=== PATIENT | female | born 1980 | race Caucasian/White ===

== ENCOUNTER 2020-04-30 22:04 | Emergency (ER) | payer OTHER ==
[~2020-04-30 22:04] MED LIST: BACTRIM DS TAB1 EACH PO; KEFLEX CAP 500500 MG PO; PERCOCET 10-321 EACH PO; VIBRAMYCIN100 MG PO
[2020-05-01 00:54] LABS: HEMOGLOBIN 11.8 gm/dl (12.3-15.3); RED BLOOD COUNT 4.41 M/UL (4.00-5.10)
[2020-05-01 01:04] LABS: BUN/CREATININE RATIO 18 (0-10)
== END 2020-05-01 03:20 | disposition home or self-care (01) ==
LOC: ER1 22:04
DX: M79.89 Other specified soft tissue disorders (principal); Z90.89 Acquired absence of other organs
CPT/HCPCS: 71045; 73590; 80053; 82550; 82553; 83874; 83880; 84484; 85025; 85379; 85652; 99283

== ENCOUNTER 2020-06-17 01:23 | Emergency (ER) | payer OTHER ==
[2020-06-17 02:50] LABS: HEMOGLOBIN 11.2 gm/dl (12.3-15.3); RED BLOOD COUNT 4.25 M/UL (4.00-5.10); WHITE BLOOD COUNT 5.3 K/UL (4.5-11.0)
[2020-06-17 03:07] LABS: BUN/CREATININE RATIO 18 (0-10)
[2020-06-17] MEDS ORDERED: AUGMENTIN 875-1 EACH PO (04:25)
== END 2020-06-17 04:37 | disposition home or self-care (01) ==
LOC: ER1 01:23
PROVIDERS: Physician Assistant
DX: J02.0 Streptococcal pharyngitis (principal); R79.1 Abnormal coagulation profile; Z86.718 Personal history of other venous thrombosis and embolism; Z90.49 Acquired absence of other specified parts of digestive tract; Z88.8 Allergy status to other drugs, medicaments and biological substances
CPT/HCPCS: 70491; 80053; 84439; 84443; 85025; 85379; 86403; 87081; 87880; 99284; J1650; Q9967

== ENCOUNTER 2021-10-20 23:00 | Emergency (ER) | payer OTHER ==
[~2021-10-20 23:00] MED LIST changes: +AUGMENTIN 875-1 EACH PO
[2021-10-20 23:48] LABS: HEMOGLOBIN 12.3 gm/dl (12.3-15.3); RED BLOOD COUNT 4.32 M/UL (4.00-5.10); WHITE BLOOD COUNT 6.3 K/UL (4.5-11.0)
[2021-10-21 00:11] LABS: BUN/CREATININE RATIO 18 (0-10)
== END 2021-10-21 05:12 | disposition home or self-care (01) ==
LOC: ER1 23:00
DX: R07.9 Chest pain, unspecified (principal); Z51.81 Encounter for therapeutic drug level monitoring
CPT/HCPCS: 71045; 80053; 82550; 82553; 83880; 84484; 85025; 85379; 85610; 85730; 93005; 96374; 99285; J1650; J2270; Q9967